=== PATIENT | male | born 1990 | race Hispanic/Latino ===

== ENCOUNTER 2017-08-02 05:33 | Emergency (ER) | payer BC ==
[2017-08-02 05:45] VITALS: RESP 18; O2SAT 98
[2017-08-02] MEDS ORDERED: diaZEpam 10 mg/2 ml Inj IVP ONE (06:00)
[2017-08-02] MEDS ORDERED: Sodium Chloride 0.9% 1,000 ML IV STA (06:04)
--- NOTE | 2017-08-02 06:14 | ED PDOC ---
HPI: Back Time Seen by Provider: 08/02/17 05:38 Chief Complaint (Nursing): Back Pain Chief Complaint (Provider): Back pain History Per: Patient History/Exam Limitations: no limitations Onset/Duration Of Symptoms: Days (3) Current Symptoms Are (Timing): Still Present Previous Symptoms: Back Pain Additional History Per: Patient Additional Complaint(s): 27yo male, with history of back pain, present sot ED for evaluation of lower back pain for the past 3 days. Patient states he developed an acute flare of back pain 3 days ago, and was evaluated at a chiropractor who performed an adjustment with some improvement. Patient states the pain worsened yesterday when he sat in his car and since this morning, the pain has been excruciating. He states the pain is 10/10 and he has been unable to move; pain is mostly located in left lower back, radiating to his buttock and leg. He denies any bowel or bladder dysfunction, numbness, or tingling. He has no other complaints. PMD: Jt Kaur Past Medical History Reviewed: Historical Data, Nursing Documentation, Vital Signs Vital Signs: Last Vital Signs Temp 98.4 F 08/02/17 05:41 Pulse 60 08/02/17 05:41 Resp 18 08/02/17 05:41 BP 124/62 08/02/17 05:41 Pulse Ox 98 08/02/17 05:41 - Medical History PMH: Back Problems - Surgical History Other surgeries: right ACL repair - Family History Family History: States: No Known Family Hx - Home Medications Home Medications: Ambulatory Orders Medication Instructions Recorded Naproxen [Naprosyn] 500 mg PO BID PRN #15 tablet 08/02/17 diaZEpam [Valium] 5 mg PO TID PRN #6 tab 08/02/17 - Allergies Allergies/Adverse Reactions: Allergies Allergy/AdvReac Type Severity Reaction Status Date / Time No Known Allergies Allergy Verified 08/02/17 05:41 Review of Systems ROS Statement: Except As Marked, All Systems Reviewed And Found Negative Genitourinary Male: Negative for: Incontinence Musculoskeletal: Positive for: Back Pain (left lower back), Leg Pain (left) Neurological: Negative for: Weakness, Numbness Physical Exam - Reviewed Nursing Documentation Reviewed: Yes Vital Signs Reviewed: Yes - Physical Exam Appears: Positive for: Non-toxic, Uncomfortable Head Exam: Positive for: ATRAUMATIC, NORMAL INSPECTION, NORMOCEPHALIC Skin: Positive for: Normal Color, Warm Eye Exam: Positive for: Normal appearance Neck: Positive for: Supple Cardiovascular/Chest: Positive for: Regular Rate, Rhythm Respiratory: Positive for: Normal Breath Sounds Gastrointestinal/Abdominal: Positive for: Soft. Negative for: Tenderness Extremity: Positive for: Other (patient unable to lift left leg actively; + Straight leg raise 15 degrees passively of left leg). Negative for: Pedal Edema , Deformity Neurologic/Psych: Positive for: Alert, Oriented - ECG O2 Sat by Pulse Oximetry: 98 (RA) Pulse Ox Interpretation: Normal Medical Decision Making Medical Decision Making: Impression: 27yo male with acute flare of low back pain Plan: -- CT Lumbar spine -- IV Valium -- IV Toradol Time: 0700 Patient signed out to Dr. Conteh pending CT studies, reevaluation. Scribe Attestation: Documented by Denia Parish, acting as a scribe for Martell Ponce MD. Provider Scribe Attestation: All medical record entries made by the Scribe were at my direction and personally dictated by me. I have reviewed the chart and agree that the record accurately reflects my personal performance of the history, physical exam, medical decision making, and the department course for this patient. I have also personally directed, reviewed, and agree with the discharge instructions and disposition. Disposition - Clinical Impression Clinical Impression: Bulging lumbar disc - Patient ED Disposition Is Patient to be Admitted: Transfer of Care - Disposition Referrals: Charline [facility] [Outside] Disposition: Transfer of Care Disposition Time: 07:00 Condition: IMPROVED Additional Instructions: FOLLOW-UP WITH PMD WITHIN 2 DAYS FOR REEVALUATION. Prescriptions: diaZEpam [Valium] 5 mg PO TID PRN #6 tab PRN Reason: Muscle Spasm Naproxen [Naprosyn] 500 mg PO BID PRN #15 tablet PRN Reason: Pain, Moderate (4-7) Instructions: Herniated Disc Forms: Charline Martinez (Kiswahili) Patient Signed Over To: Sona Conteh
--- NOTE | 2017-08-02 07:21 | ED PDOC ---
- ECG O2 Sat by Pulse Oximetry: 98 (RA) Pulse Ox Interpretation: Normal Medical Decision Making Medical Decision Making: Time: 07 Patient signed out to me by Dr. Ponce pending CT scan. Time: 855 PROCEDURE: CT Lumbar Spine without contrast FINDINGS: VERTEBRAE: Vertebral bodies maintained in height. Normal alignment maintained. No spondylolysis or spondylolisthesis. DISCS/SPINAL CANAL/NEURAL FORAMINA: L1-2: No disc bulge or herniation. No spinal or foraminal stenosis. L2-3: No disc bulge or herniation. No spinal or foraminal stenosis. L3-4: Asymmetric disc bulge towards the left. No danisha disc herniation. No spinal or neural foraminal stenosis appreciated. L4-5: Left parasagittal disc herniation. No neural foraminal or central spinal stenosis. . L5-S1: No disc bulge or herniation. No spinal or neural foraminal stenosis. PARASPINAL SOFT TISSUES: Unremarkable. OTHER FINDINGS: None. IMPRESSION: Asymmetric disc bulge towards the left at L3-4. Left parasagittal disc herniation at L4-5. No spinal stenosis or neural foraminal stenosis throughout the lumbar spine. The remainder the examination is unremarkable. Time: 902 Still in pain so Morphine 2mg and Lidoderm patch were provided. Scribe Attestation: Documented by Kiersten Caballero, acting as a scribe for Sona Conteh MD Provider Scribe Attestation: All medical record entries made by the Scribe were at my direction and personally dictated by me. I have reviewed the chart and agree that the record accurately reflects my personal performance of the history, physical exam, medical decision making, and the department course for this patient. I have also personally directed, reviewed, and agree with the discharge instructions and disposition. Disposition - Disposition Condition: STABLE Forms: Grow (Mozambican)
--- NOTE | 2017-08-02 08:58 | CT ---
PROCEDURE: CT Lumbar Spine without contrast HISTORY: Low back pain COMPARISON: None. TECHNIQUE: Axial computed tomography images were obtained of the lumbar spine without the use of intravenous contrast. Coronal and sagittal reformatted images were created and reviewed. Radiation dose: Total exam DLP = 457.07 mGy-cm. This CT exam was performed using one or more of the following dose reduction techniques: Automated exposure control, adjustment of the mA and/or kV according to patient size, and/or use of iterative reconstruction technique. FINDINGS: VERTEBRAE: Vertebral bodies maintained in height. Normal alignment maintained. No spondylolysis or spondylolisthesis. DISCS/SPINAL CANAL/NEURAL FORAMINA: L1-2: No disc bulge or herniation. No spinal or foraminal stenosis. L2-3: No disc bulge or herniation. No spinal or foraminal stenosis. L3-4: Asymmetric disc bulge towards the left. No danisha disc herniation. No spinal or neural foraminal stenosis appreciated. L4-5: Left parasagittal disc herniation. No neural foraminal or central spinal stenosis. . L5-S1: No disc bulge or herniation. No spinal or neural foraminal stenosis. PARASPINAL SOFT TISSUES: Unremarkable. OTHER FINDINGS: None. IMPRESSION: Asymmetric disc bulge towards the left at L3-4. Left parasagittal disc herniation at L4-5. No spinal stenosis or neural foraminal stenosis throughout the lumbar spine. The remainder the examination is unremarkable.
[2017-08-02] MEDS ORDERED: Lidocaine 5% Patch TD STA (09:03)
[2017-08-02] MEDS ORDERED: Lidocaine 5% Patch TD ONE (09:24)
[2017-08-02 12:33] VITALS: BP 120/70; PULSE 72; TEMP 98
== END 2017-08-02 12:30 | disposition home or self-care (01) ==
LOC: H.ER 05:33
DX: M51.26 Other intervertebral disc displacement, lumbar region (principal)
CPT/HCPCS: 72131; 96374; 99284; J1885; J2270; J7040